=== PATIENT | male | born 1965 | race Caucasian/White ===

== ENCOUNTER → 2020-06-15 10:14 | Outpatient (CLI) | payer BC, SELFPAY ==
--- NOTE | 2020-06-15 10:22 | MRI_ITS ---
HISTORY: cranial nerve disorder, vertigo, hearing loss right ear, tinnitus COMPARISON: None. TECHNIQUE: Multisequence multiplanar MR imaging of the internal auditory canals and brain per department protocol without and with 19 mL of Dotarem intravenous gadolinium. # of images including paperwork: [id number] FINDINGS: IAC: Bilateral VII and VIII nerve complex are normal in size, morphology, and signal characteristics. No masses or abnormal enhancement. Bilateral cerebellopontine angle cisterns are within normal limits. Normal width of bilateral internal auditory canals. Cisternal aspect of bilateral trigeminal nerves have a normal appearance. No evidence of fluid is seen in the mastoid or middle ear cavities bilaterally. No evidence of soft tissue mass is seen involving the petrous portion of the temporal bones. BRAIN: BRAIN: Diffusion-weighted imaging shows no acute infarct. No remote parenchymal infarct. No parenchymal hemorrhage, intra-axial mass, mass effect, or midline shift. No abnormal extra-axial fluid collections. VENTRICLES: Ventricles are normal in size and configuration. No hydrocephalus. POST CONTRAST: No abnormal enhancing parenchymal or dural based lesions. PARANASAL SINUSES: Visualized paranasal sinuses are clear. ORBITS: Orbits are unremarkable. MRI/Brain W/WO Contrast IMPRESSION: 1. Negative MR examination of bilateral internal auditory canals. 2. Negative pre-and postcontrast MR examination of brain. at 1701 Reported and signed by: David Bro MD Electronically Signed: David Bro MD at 17:00 EST Tel , Service support ,
--- NOTE | 2020-06-15 10:22 | RAD_ITS ---
STUDY: X-RAY - ORBITS REASON FOR EXAM: Male, 54 years old. PRE MRI, HX METAL IN EYES TECHNIQUE: 2 view(s) of the orbits were obtained. COMPARISON: None. FINDINGS: Normal bilateral orbits without a metallic orbital foreign body. Normal visualized facial bones. Normal paranasal sinuses. The soft tissue structures are unremarkable. RAD/Orbits for Foreign Body IMPRESSION: No demonstrated metallic orbital foreign body. The patient is cleared for an MRI examination. Electronically Signed: Benito Herrera MD at 10:58 EST , Service support ,
== END ==
PROVIDERS: Referring Provider Otolaryngology Otolaryngic Allergy; Visit Provider Otolaryngology Otolaryngic Allergy
DX: G52.9 Cranial nerve disorder, unspecified (principal)
CPT/HCPCS: 70030; 70553; A9575